=== PATIENT | female | born 1960 | race Caucasian/White ===

== ENCOUNTER 2020-09-27 10:30 | Emergency (ER) | payer OTHER ==
[~2020-09-27 10:30] MED LIST: AMBIEN10 MG PO; AMOXICILLIN500 MG PO; BACLOFEN 10MG T10 MG PO; CLEOCIN300 MG PO; LISINOPRIL40 MG PO; MIRALAX17 GM PO; NITROFURANTOIN100 MG PO; NORCO 5-325 TA1 EACH PO; NORCO 7.5-3251 EACH PO; NORVASC10 MG PO; PEPCID AC20 MG PO; PERCOCET 5-3251 EACH PO; SYNTHROID150 MCG PO; TRAMADOL HCL50 MG PO; ZOFRAN ODT4 MG PO/SL; ZOFRAN8 MG PO
[2020-09-27] MEDS ORDERED: ROBAXIN750 MG PO (12:01)
[2020-09-27] MEDS ORDERED: ZOFRAN4 M1 PO (12:01)
[2021-03-17] MEDS ORDERED: GABAPENTIN600 MG PO (15:42)
[2021-03-17] MEDS ORDERED: APRESOLINE100 MG PO (15:42)
[2021-03-17] MEDS ORDERED: HCTZ12.5 MG PO (15:42)
[2021-03-20] MEDS ORDERED: AMITIZA8 MCG PO (09:19)
[2021-03-20] MEDS ORDERED: PROTONIX 40MG T40 MG PO (09:19)
== END 2020-09-27 12:38 | disposition home or self-care (01) ==
LOC: FER 10:30
DX: S16.1XXA Strain of muscle, fascia and tendon at neck level, initial encounter (principal); R11.2 Nausea with vomiting, unspecified; M25.532 Pain in left wrist; R42 Dizziness and giddiness; G89.29 Other chronic pain; Z79.891 Long term (current) use of opiate analgesic; V49.40XA Driver injured in collision with unspecified motor vehicles in traffic accident, initial encounter; Y92.410 Unspecified street and highway as the place of occurrence of the external cause
CPT/HCPCS: 72050

== ENCOUNTER 2021-03-16 15:13 | Emergency (ER) | payer MEDICARE ==
[~2021-03-16 15:13] MED LIST changes: +ROBAXIN750 MG PO; +ZOFRAN4 M1 PO
[2021-03-16 16:14] LABS: BASOPHIL 0.8 % (0-2); EOSINOPHIL 2.4 % (0-5); HCT 47.3 % (37.0-47.0); HGB 15.5 g/dl (12.5-16.0); LYMPHOCYTE 25.1 % (15-48); MCH 31.4 pg (25.0-31.0); MCHC 32.8 g/dL (32.0-36.0); MCV 95.9 fL (78.0-100.0); MONOCYTE 7.7 % (0-12); MPV 10.2 fL (6.0-9.5); NEUTROPHIL 63.9 % (41-80); NRBC 0; PLT 325 K/uL (150-400); RBC 4.93 M/uL (4.20-5.40); RDW 12.8 % (11.5-14.0); WBC 7.9 K/uL (4.0-10.5)
[2021-03-16 16:30] LABS: ALBUMIN 3.8 g/dL (3.4-5.0); BILIRUBIN - TOTAL 0.2 mg/dL (0.2-1.0); BUN/CREAT RATIO (CALC) 16.5 RATIO; CREATININE 0.91 mg/dL (0.51-0.95); POTASSIUM 3.5 mmol/L (3.5-5.1); TOTAL PROTEIN 7.8 g/dL (6.4-8.2)
[2021-03-16 17:19] LABS: BILIRUBIN NEGATIVE (NEGATIVE); BLOOD NEGATIVE Ery/uL (NEGATIVE); CLARITY CLEAR (CLEAR); COLOR YELLOW (YELLOW); GLUCOSE (U) NORMAL (NORMAL); LEUKOCYTES NEGATIVE Leu/uL (NEGATIVE); NITRITE NEGATIVE (NEGATIVE); PROTEIN NEGATIVE (NEGATIVE); UROBILINOGEN 0.2 mg/dL (0.2-1.0)
[2021-03-16] MEDS ORDERED: COLACE100 MG PO (19:32)
[2021-03-16] MEDS ORDERED: BENTYL10 MG PO (19:32)
[2021-03-17] MEDS ORDERED: HCTZ12.5 MG PO (15:42)
[2021-03-17] MEDS ORDERED: APRESOLINE100 MG PO (15:42)
[2021-03-17] MEDS ORDERED: GABAPENTIN600 MG PO (15:42)
[2021-03-20] MEDS ORDERED: PROTONIX 40MG T40 MG PO (09:19)
[2021-03-20] MEDS ORDERED: AMITIZA8 MCG PO (09:19)
== END 2021-03-16 19:58 | disposition home or self-care (01) ==
LOC: FER 15:13
PROVIDERS: Emergency Medicine
DX: R10.84 Generalized abdominal pain (principal); R11.0 Nausea; R63.0 Anorexia; I10 Essential (primary) hypertension; E07.9 Disorder of thyroid, unspecified; F17.210 Nicotine dependence, cigarettes, uncomplicated; Z85.3 Personal history of malignant neoplasm of breast; Z88.1 Allergy status to other antibiotic agents; Z79.899 Other long term (current) drug therapy
CPT/HCPCS: 36415; 80053; 81003; 82150; 83690; 85025; J2270; J2405; J7040; Q9967

== ENCOUNTER → 2021-03-20 | Day surgery (SDC) | payer MEDICARE ==
[~2021-03-20] VITALS: Ht 152.4 cm; Wt 92.1 kg
[~2021-03-20] MED LIST changes: +AMITIZA8 MCG PO; +APRESOLINE100 MG PO; +BENTYL10 MG PO; +COLACE100 MG PO; +GABAPENTIN600 MG PO; +HCTZ12.5 MG PO; +PROTONIX 40MG T40 MG PO
== END | disposition home or self-care (01) ==
LOC: FAS 07:19
DX: D12.3 Benign neoplasm of transverse colon (principal); D12.5 Benign neoplasm of sigmoid colon; K31.89 Other diseases of stomach and duodenum; K44.9 Diaphragmatic hernia without obstruction or gangrene; K59.00 Constipation, unspecified; K80.20 Calculus of gallbladder without cholecystitis without obstruction; G89.4 Chronic pain syndrome; I10 Essential (primary) hypertension; E78.5 Hyperlipidemia, unspecified; E03.9 Hypothyroidism, unspecified; G47.00 Insomnia, unspecified; F17.210 Nicotine dependence, cigarettes, uncomplicated; K43.9 Ventral hernia without obstruction or gangrene; Z85.3 Personal history of malignant neoplasm of breast; Z79.899 Other long term (current) drug therapy; Z88.1 Allergy status to other antibiotic agents
CPT/HCPCS: 88305; 93005; J1885; J2250; J2405; J2704; J7120

== ENCOUNTER 2021-04-20 17:20 | Emergency (ER) | payer MEDICARE ==
[2021-04-21] MEDS ORDERED: NORCO 5-325 TA1 EACH PO (23:47)
== END 2021-04-20 19:25 | disposition home or self-care (01) ==
LOC: FER 17:20
DX: R10.11 Right upper quadrant pain (principal)
CPT/HCPCS: 96372; 99283; J1170

== ENCOUNTER 2021-04-21 22:13 | Emergency (ER) | payer MEDICARE ==
[2021-04-21] MEDS ORDERED: NORCO 5-325 TA1 EACH PO (23:47)
== END 2021-04-22 00:12 | disposition home or self-care (01) ==
LOC: FER 22:13
DX: K80.50 Calculus of bile duct without cholangitis or cholecystitis without obstruction (principal); J44.9 Chronic obstructive pulmonary disease, unspecified; F17.210 Nicotine dependence, cigarettes, uncomplicated; Z90.10 Acquired absence of unspecified breast and nipple; Z88.1 Allergy status to other antibiotic agents
CPT/HCPCS: 99283; J1885; J2270

== ENCOUNTER 2021-11-10 13:41 | Emergency (ER) | payer MEDICARE | END 2021-11-10 15:24 | disposition home or self-care (01) | LOC: FER 13:41 | DX: I89.0 Lymphedema, not elsewhere classified (principal); I10 Essential (primary) hypertension; F17.210 Nicotine dependence, cigarettes, uncomplicated; Z88.1 Allergy status to other antibiotic agents | CPT/HCPCS: 99283 ==

== ENCOUNTER → 2022-01-05 | Day surgery (SDC) | payer MEDICARE ==
[~2022-01-05] VITALS: Ht 152.4 cm; Wt 95.2 kg
[~2022-01-05] MED LIST changes: +HYDROXYZINE HCL50 MG PO
[2022-01-05 07:31] LABS: HCT 43.3 % (37.0-47.0); HGB 13.9 g/dl (12.5-16.0); MCH 31.1 pg (25.0-31.0); MCHC 32.1 g/dL (32.0-36.0); MCV 96.9 fL (78.0-100.0); MPV 9.9 fL (6.0-9.5); RBC 4.47 M/uL (4.20-5.40); RDW 12.2 % (11.5-14.0); WBC 8.4 K/uL (4.0-10.5)
[2022-01-05 07:39] LABS: BUN/CREAT RATIO (CALC) 14.1 RATIO; CREATININE 0.85 mg/dL (0.51-0.95); POTASSIUM 4.2 mmol/L (3.5-5.1)
== END | disposition home or self-care (01) ==
LOC: FAS 06:04
PROVIDERS: Anesthesiology; Legal Medicine
DX: M67.432 Ganglion, left wrist (principal); M65.342 Trigger finger, left ring finger; M65.352 Trigger finger, left little finger; M75.01 Adhesive capsulitis of right shoulder; K21.9 Gastro-esophageal reflux disease without esophagitis; E03.9 Hypothyroidism, unspecified; F17.200 Nicotine dependence, unspecified, uncomplicated; J44.9 Chronic obstructive pulmonary disease, unspecified; I10 Essential (primary) hypertension; I89.0 Lymphedema, not elsewhere classified; Z85.3 Personal history of malignant neoplasm of breast; Z79.890 Hormone replacement therapy; Z79.899 Other long term (current) drug therapy; Z88.1 Allergy status to other antibiotic agents
CPT/HCPCS: 36415; 80048; 93005; J0690; J1100; J1170; J1885; J2250; J2405; J2704; J2795; J3010; J7120

== ENCOUNTER 2022-02-05 06:49 | Emergency (ER) | payer MEDICARE ==
[2022-02-05 07:49] LABS: BASOPHIL 0.6 % (0-2); HCT 41.5 % (37.0-47.0); HGB 13.4 g/dl (12.5-16.0); LYMPHOCYTE 44.9 % (15-48); MCH 30.8 pg (25.0-31.0); MCHC 32.3 g/dL (32.0-36.0); MCV 95.4 fL (78.0-100.0); MONOCYTE 9.4 % (0-12); MPV 9.6 fL (6.0-9.5); NRBC 0; PLT 277 K/uL (150-400); RBC 4.35 M/uL (4.20-5.40); RDW 12.4 % (11.5-14.0)
[2022-02-05 08:13] LABS: ALBUMIN 3.7 g/dL (3.4-5.0); ALKALINE PHOSHATASE 148 U/L (46-116); ALT 17 U/L (14-59); AST 15 U/L (15-37); BILIRUBIN - TOTAL 0.1 mg/dL (0.2-1.0); BUN 9 mg/dL (7-18); BUN/CREAT RATIO (CALC) 9.8 RATIO; CHLORIDE 102 mmol/L (98-107); CO2 (BICARBONATE) 27 mmol/L (21-32); CREATININE 0.92 mg/dL (0.51-0.95); GLOBULIN (CALCULATION) 3.3 g/dL; GLUCOSE 114 mg/dL (74-106); MAGNESIUM 1.9 mg/dL (1.8-2.4); POTASSIUM 3.9 mmol/L (3.5-5.1)
[2022-02-05 08:14] LABS: C-REACTIVE PROTEIN < 0.20 mg/dL (<=0.90)
[2022-02-05 08:21] LABS: CORONAVIRUS 2019 SARS-COV-2 NEGATIVE (NEGATIVE); INFLUENZA A NAA NEGATIVE (NEGATIVE)
[2022-02-05] MEDS ORDERED: VIBRAMYCIN100 MG PO (09:54)
== END 2022-02-05 10:34 | disposition home or self-care (01) ==
LOC: FER 06:49
PROVIDERS: Internal Medicine
DX: J18.9 Pneumonia, unspecified organism (principal); F17.210 Nicotine dependence, cigarettes, uncomplicated; Z20.822 Contact with and (suspected) exposure to COVID-19; Z88.1 Allergy status to other antibiotic agents
CPT/HCPCS: 36415; 71045; 71250; 80053; 83735; 83880; 84145; 84484; 85025; 86140; 93005; U0002

== ENCOUNTER 2022-02-26 18:26 | Emergency (ER) | payer OTHER ==
[~2022-02-26 18:26] MED LIST changes: +VIBRAMYCIN100 MG PO
[2022-02-26 20:53] LABS: BASOPHIL 0.4 % (0-2); EOSINOPHIL 2.2 % (0-5); HCT 46.4 % (37.0-47.0); HGB 15.2 g/dl (12.5-16.0); LYMPHOCYTE 29.7 % (15-48); MCH 30.8 pg (25.0-31.0); MCHC 32.8 g/dL (32.0-36.0); MCV 93.9 fL (78.0-100.0); MONOCYTE 7.3 % (0-12); MPV 9.5 fL (6.0-9.5); NRBC 0; PLT 340 K/uL (150-400); RBC 4.94 M/uL (4.20-5.40); RDW 13.2 % (11.5-14.0); WBC 9.3 K/uL (4.0-10.5)
[2022-02-26 21:10] LABS: BUN/CREAT RATIO (CALC) 12.5 RATIO; CREATININE 1.36 mg/dL (0.51-0.95)
[2022-02-26] MEDS ORDERED: NORCO 5-325 TA1 EACH PO (22:39)
[2022-02-26] MEDS ORDERED: CLEOCIN300 MG PO (22:39)
== END 2022-02-26 22:47 | disposition home or self-care (01) ==
LOC: FER 18:26
PROVIDERS: Nurse Practitioner Family
DX: L03.113 Cellulitis of right upper limb (principal); I10 Essential (primary) hypertension; Z88.1 Allergy status to other antibiotic agents
CPT/HCPCS: 36415; 80048; 85025; J2270; J7030

== ENCOUNTER 2022-05-01 16:18 | Emergency (ER) | payer OTHER ==
[2022-05-01 18:54] LABS: BASOPHIL 0.4 % (0-2); EOSINOPHIL 1.5 % (0-5); HCT 42.8 % (37.0-47.0); HGB 13.8 g/dl (12.5-16.0); LYMPHOCYTE 21.7 % (15-48); MCH 30.2 pg (25.0-31.0); MCHC 32.2 g/dL (32.0-36.0); MCV 93.7 fL (78.0-100.0); MPV 9.8 fL (6.0-9.5); NEUTROPHIL 67.8 % (41-80); NRBC 0; PLT 339 K/uL (150-400); RBC 4.57 M/uL (4.20-5.40); RDW 13.6 % (11.5-14.0); WBC 10.8 K/uL (4.0-10.5)
[2022-05-01 19:16] LABS: BUN/CREAT RATIO (CALC) 15.8 RATIO; CREATININE 0.76 mg/dL (0.51-0.95); POTASSIUM 3.6 mmol/L (3.5-5.1)
== END 2022-05-02 01:05 | disposition home or self-care (01) ==
LOC: FER 16:18
PROVIDERS: Emergency Medicine
DX: I89.0 Lymphedema, not elsewhere classified (principal); I10 Essential (primary) hypertension; J44.9 Chronic obstructive pulmonary disease, unspecified; F17.200 Nicotine dependence, unspecified, uncomplicated; Z88.1 Allergy status to other antibiotic agents
CPT/HCPCS: 36415; 74018; 80048; 83605; 85025; J2270; J2405